=== PATIENT | male | born 1960 | race Caucasian/White ===

== ENCOUNTER 2017-03-25 06:36 | Day surgery (SDC) | payer OTHER ==
[2017-03-23 12:50] VITALS: BMI 38.9
[2017-03-25] MEDS ORDERED: LIDOCAINE HCL 1%, 10 MG/ML (20ML VIAL) ONE (07:10)
[2017-03-25] MEDS ORDERED: LIDOCAINE 1%/EPI 1:100000 (50 ML MULTI DOSE VIAL) ONE (07:11)
[2017-03-25] MEDS ORDERED: BUPIVACAINE HCL/PF 0.5% (5MG/ML) 10 ML VIAL ONE (07:11)
[2017-03-25] MEDS ORDERED: MIDAZOLAM HCL 2 MG/2 ML SINGLE DOSE VIAL ONE (07:42)
[2017-03-25] MEDS ORDERED: PROPOFOL 20 ML ONE ×2 (07:42)
[2017-03-25] MEDS ORDERED: SUCCINYLCHOLINE CHLORIDE 200 MG/10 ML VIAL ONE (07:44)
[2017-03-25] MEDS ORDERED: ceFAZolin SODIUM 1 GM VIAL ONE (08:20)
[2017-03-25] MEDS ORDERED: ceFAZolin SODIUM 1 GM VIAL IVPB ONE (08:24)
[2017-03-25] MEDS ORDERED: BUPIVACAINE HCL/PF (5 MG/ML) 30 ML VIAL IJ ONE (08:31)
[2017-03-25] MEDS ORDERED: LIDOCAINE 1%/EPI 1:100000 (50 ML MULTI DOSE VIAL) INF ONE ×2 (08:31)
[2017-03-25] MEDS ORDERED: oxyCODONE HCL 5 MG TABLET PO PRN (08:57)
[2017-03-25] MEDS ORDERED: ONDANSETRON 4 MG/2 ML VIAL IVPUSH PRN (08:57)
[2017-03-25] MEDS ORDERED: LACTATED RINGERS SOLUTION 1,000 ML IV SCH (09:00)
--- NOTE | 2017-03-25 09:34 | HP ---
Admitting History and Physical - Primary Care Physician PCP: Fritz Cotto (Grader Marker) - Admission Chief Complaint: right 2nd hammertoe with distal chronic diabetic ulceration History of Present Illness: Right 2nd toe hammered causing distal ulceration that has been successfully managed with aperture padding. Toe ulcerates if not padded so patient has requested surgical correction of the distal joint flexure. History Source: Medical Record (deferred to pcp) - Smoking History Smoking history: Never smoked Have you smoked in the past 12 months: No Aproximately how many cigarettes per day: 0 - Alcohol/Substance Use Hx Alcohol Use: No Home Medications - Allergies Allergies/Adverse Reactions: Allergies Allergy/AdvReac Type Severity Reaction Status Date / Time montelukast sodium Allergy Rash Verified 03/25/17 07:16 [From Singulair] - Home Medications Home Medications: Ambulatory Orders Glimepiride [Amaryl] 8 mg PO HS 11/17/11 Losartan Potassium [Cozaar] 25 mg PO HS 11/17/11 Furosemide [Lasix] 40 mg PO PRN PRN 11/18/11 Aspirin Coated [Ecotrin -] 81 mg PO HS 03/25/17 Canagliflozin [Invokana] 300 mg PO HS 03/25/17 Fenofibrate,Micronized [Fenofibrate] 134 mg PO HS 03/25/17 Insulin (Levemir) [Levemir Flexpen -] 30 units SQ DAILY 03/25/17 Insulin Glargine,Hum.rec.anlog [Lantus (nf)] 10 units SQ PRN PRN 03/25/17 Methocarbamol 750 mg PO Q8H 03/25/17 Metoprolol Succinate [Toprol Xl -] 25 mg PO HS 03/25/17 Naproxen [Naprosyn -] 500 mg PO BID 03/25/17 Potassium Chloride [Klor-Con 10] 10 meq PO HS 03/25/17 Rosuvastatin [Crestor -] 10 mg PO HS 03/25/17 Sitagliptin Phosphate [Januvia] 100 mg PO HS 03/25/17 Physical Examination Vital Signs: Vital Signs Temperature 97.7 F 03/25/17 07:15 Pulse Rate 90 03/25/17 07:15 Respiratory Rate 20 03/25/17 07:15 Blood Pressure 110/61 03/25/17 07:15 O2 Sat by Pulse Oximetry (%) 93 L 03/25/17 07:14 Extremities: Yes: Other (right 2nd toe flexed at the distal interphalangeal joint with distal escar but no sign of erythema, edema or infection) Peripheral Pulses: Left Doralis Pedis: 2+, Right Dorsalis Pedis: 2+ Assessment/Plan Assessment Right 2nd hammertoe dipj causing distal weight bearing chronic ulceration. Not currently infected and superficial escar only. Plan Arthroplasty of the right 2nd toe distal interphalangeal joint to correct flexion deformity
--- NOTE | 2017-03-25 09:36 | OP ---
DATE OF OPERATION: 03/25/2017 PROCEDURE: Arthroplasty of the distal interphalangeal joint of the right second toe PREOPERATIVE DIAGNOSIS: 1. Right second hammer toe 2. Right second distal diabetic ulceration POSTOPERATIVE DIAGNOSIS: 1. Right second hammer toe 2. Right second distal diabetic ulceration ANESTHESIA: Fractional DESCRIPTION OF PROCEDURE: Under fractional anesthesia and a surgical scrub with Betadine scrub and solution x 2, the patient was draped using sterile technique. Inspection of the right foot showed flexion deformity at the distal interphalangeal joint with a distal ulceration/eschar on the distal aspect of the right second toe. No cutaneous edema, erythema or signs of infection were present at the toe. Using a No. 15 blade, a double semi-elliptical incision was made over the dorsal interphalangeal joint of the right second toe and carried to bone. Skin, subcutaneous tissue, tendon and joint capsule were resected as a single wedge, exposing the head of the middle phalanx of the right second toe. Using the bone cutting forceps, the distal aspect of the middle phalanx was resected. The wound was irrigated with sterile saline, and then the toe was re-approximated into a normal rectus position, and all tissue levels were sutured with 4-0 simple interrupted sutures. A dry, sterile dressing was applied to the right foot. The patient tolerated the surgical procedure well and left the operating room stable, alert, awake and in no pain. CORIE HERNANDEZ/[id number]
[2017-03-25 10:33] VITALS: TEMP 98
[2017-03-25 10:37] VITALS: BP 120/80; PULSE 0
--- NOTE | 2017-03-26 12:08 | PATH ---
Surgical Pathology Report Patient Name: MARCY MCGEE Med. Rec. #: [id number] /Age/Gender: 1960 (Age: 56) / M Account: [id number] Location: [facility] SURGICAL Taken: 03/25/2017 Received: 03/25/2017 Reported: 03/26/2017 Physicians: Fritz Cotto M.D. Specimen(s) Received BONE FRAGMENTS RIGHT 2ND TOE Clinical History Hammertoe right second toe Final Diagnosis BONE FRAGMENTS, RIGHT SECOND TOE, ARTHROPLASTY: BONE AND CARTILAGE WITH DEGENERATIVE CHANGES. BENIGN SKIN. Electronically Signed Akhil Ziegler M.D. Gross Description Received in formalin labeled "bone pieces right second toe" are 2 duong, irregular portions of bone measuring 0.9 x 0.7 x 0.4 cm and 0.6 x 0.4 x 0.4 cm. The bones are bisected. Also received within the same container is a 1.5 x 0.6 cm duong, elliptical skin shave. The epidermal surface is unremarkable. The skin shave is bisected. The specimen is entirely submitted in one cassette, following decalcification. /03/25/2017 saudi03/25/2017
== END 2017-03-25 10:38 | disposition home or self-care (01) ==
LOC: JASU-SURG 06:36
PROVIDERS: ATTEND Podiatrist Foot Surgery
PROC: 0SRP0JZ Replacement of Right Toe Phalangeal Joint with Synthetic Substitute, Open Approach (ICD-10-PCS; principal; 2017-03-25 08:00)
DX: M20.41 Other hammer toe(s) (acquired), right foot (principal); E11.621 Type 2 diabetes mellitus with foot ulcer; L97.519 Non-pressure chronic ulcer of other part of right foot with unspecified severity; Z79.4 Long term (current) use of insulin; Z79.82 Long term (current) use of aspirin
CPT/HCPCS: 88304-TC; 88311-TC; 94760; J3490

== ENCOUNTER 2017-07-02 10:03 | Day surgery (SDC) | payer OTHER ==
[2017-07-01 11:14] VITALS: BMI 39.5
[2017-07-02] MEDS ORDERED: BUPIVACAINE HCL/PF 0.5% (5MG/ML) 10 ML VIAL ONE (11:48)
[2017-07-02] MEDS ORDERED: MIDAZOLAM HCL 2 MG/2 ML SINGLE DOSE VIAL ONE (11:50)
[2017-07-02] MEDS ORDERED: PROPOFOL 20 ML ONE ×3 (11:53→12:20)
[2017-07-02] MEDS ORDERED: ceFAZolin SODIUM 1 GM VIAL ONE (11:54)
[2017-07-02] MEDS ORDERED: ceFAZolin SODIUM 1 GM VIAL IVPB ONE (11:54)
[2017-07-02] MEDS ORDERED: LIDOCAINE HCL 0.5% EPINEPHRINE 1:200,000 50 ML VIAL IJ ONE (12:07)
[2017-07-02] MEDS ORDERED: BUPIVACAINE HCL/PF 0.5% (5MG/ML) 10 ML VIAL IJ ONE (12:07)
[2017-07-02] MEDS ORDERED: LACTATED RINGERS SOLUTION 1,000 ML IV SCH (13:00)
[2017-07-02] MEDS ORDERED: ONDANSETRON 4 MG/2 ML VIAL IVPUSH PRN (13:00)
[2017-07-02] MEDS ORDERED: oxyCODONE HCL 5 MG TABLET PO PRN (13:00)
--- NOTE | 2017-07-02 13:10 | HP ---
Admitting History and Physical - Primary Care Physician PCP: Fritz Cotto (Ticket Maker) - Admission Chief Complaint: prominent hammertoes 2nd and 5th right foot that have ulcerated in the past. History of Present Illness: Prior ulcerations of the right 2nd and 5th hammertoes have prompted patient to request surgical correction of the deformed toes prior to his next season. History Source: Medical Record (medical history deferred to PCP.) - Smoking History Smoking history: Never smoked Have you smoked in the past 12 months: No Aproximately how many cigarettes per day: 0 - Alcohol/Substance Use Hx Alcohol Use: Yes ([place]) Home Medications - Allergies Allergies/Adverse Reactions: Allergies Allergy/AdvReac Type Severity Reaction Status Date / Time montelukast sodium Allergy Rash Verified 07/02/17 10:25 [From Singfranir] - Home Medications Home Medications: Ambulatory Orders Glimepiride [Amaryl] 8 mg PO HS 11/17/11 Losartan Potassium [Cozaar] 25 mg PO HS 11/17/11 Furosemide [Lasix] 40 mg PO PRN PRN 11/18/11 Aspirin Coated [Ecotrin -] 81 mg PO HS 03/25/17 Canagliflozin [Invokana] 300 mg PO HS 03/25/17 Fenofibrate,Micronized [Fenofibrate] 134 mg PO HS 03/25/17 Insulin (Levemir) [Levemir Flexpen -] 30 units SQ DAILY 03/25/17 Insulin Glargine,Hum.rec.anlog [Lantus (nf)] 10 units SQ PRN PRN 03/25/17 Methocarbamol 750 mg PO Q8H PRN 03/25/17 Metoprolol Succinate [Toprol Xl -] 25 mg PO HS 03/25/17 Naproxen [Naprosyn -] 500 mg PO BID PRN 03/25/17 Potassium Chloride [Klor-Con 10] 10 meq PO HS 03/25/17 Rosuvastatin [Crestor -] 10 mg PO HS 03/25/17 Sitagliptin Phosphate [Januvia] 100 mg PO HS 03/25/17 Physical Examination Vital Signs: Vital Signs Temperature 98.2 F 07/02/17 10:29 Pulse Rate 80 07/02/17 10:29 Respiratory Rate 18 07/02/17 10:29 Blood Pressure 108/66 07/02/17 10:29 O2 Sat by Pulse Oximetry (%) 95 07/02/17 10:29 Extremities: Yes: Other (right 5th toes flexed at interphalangeal joints with no sign of cutaneous ulceration at this time.) Assessment/Plan Assessment Diabetes Hammertoes right 2nd and 5th with bone prominence that cause cutaneous ulcerations Plan Elective arthroplasty of the right 2nd and 5th toes to remove bone prominences and reduce the chances of future ulceration at the sites.
[2017-07-02 13:31] VITALS: TEMP 98.1
[2017-07-02 16:06] VITALS: BP 103/50; PULSE 81
--- NOTE | 2017-07-03 10:24 | OP ---
DATE OF OPERATION: 07/02/2017 SURGEON: Fritz Cotto DPM PREOPERATIVE DIAGNOSIS: Hammertoes of the right second and fifth. POSTOPERATIVE DIAGNOSIS: Hammertoes of the right second and fifth. PROCEDURES: 1. Right second toe distal interphalangeal joint arthroplasty. 2. Right fifth toe proximal interphalangeal joint arthroplasty. DESCRIPTION OF PROCEDURE: Under fractional anesthesia and a surgical scrub with Betadine scrub and solution x2, the patient was draped using sterile technique. Inspection of the right second and fifth digits showed flexion deformities at the distal interphalangeal joint of the second toe and the proximal interphalangeal joint of the fifth toe. No cutaneous ulcerations or signs of infection are present at this time. Using a number 15 surgical blade, a transverse incision was made on the dorsal aspect of the right second toe at the distal interphalangeal joint. The incision was deepened through fascia and joint capsule and retracted, exposing the middle phalanx. Using bone-cutting forceps, the distal aspect of the middle phalanx was resected, and then, the wound was irrigated with sterile saline until it was reapproximated into normal anatomic position. Then, extensor tendon was sutured with 4-0 Vicryl, and then, skin was reapproximated and closed with 4-0 nylon simple interrupted sutures. Attention was then directed to the right fifth toe. Using a number 15 surgical blade, a linear longitudinal incision was made on the dorsal lateral aspect of the right fifth toe. The incision was deepened through fascia and retracted. The extensor tendon and joint capsule were transversely incised and reflected from the proximal interphalangeal joint. Using bone-cutting forceps, the head of the proximal phalanx was resected from the toe. The wound was irrigated with sterile saline, and then, joint capsule and extensor tendon were reapproximated into normal anatomic position and repaired with 4-0 Vicryl suture. Skin was then reapproximated and repaired and closed with 4-0 nylon simple interrupted sutures. A dry sterile dressing was applied to the right foot. The patient tolerated the surgical procedure well and left the operating room stable, alert, awake, and in no pain. CORIE HERNANDEZ/[id number]
--- NOTE | 2017-07-06 14:17 | PATH ---
Surgical Pathology Report Patient Name: MARCY MCGEE [facility]. Rec. #: [id number] /Age/Gender: 1960 (Age: 57) / M Account: [id number] Location: [facility] SURGICAL Taken: 07/02/2017 Received: 07/02/2017 Reported: 07/06/2017 Physicians: Fritz Cotto M.D. Specimen(s) Received BONE FROM 2ND AND 5TH TOES RIGHT FOOT Clinical History Hammertoe right second and fifth toes Final Diagnosis BONE, SECOND AND FIFTH TOE, RIGHT FOOT, ARTHROPLASTY: SOFT TISSUE WITH FOCAL ACUTE INFLAMMATION WITH ABSCESS FORMATION FOCALLY INVOLVING AN UNDERLYING FRAGMENT OF BONE WITH FOCAL EVIDENCE OF DEVELOPMENT OF CHRONIC OSTEOMYELITIS. REMAINING FRAGMENTS OF BONE WITH REMODELING AND DEGENERATIVE CHANGES. Comment: Clinical and imaging correlations are suggested. Electronically Signed Akhil Ziegler M.D. Gross Description Received in formalin labeled "bone from second and fifth toes right foot" are 4 duong, irregular portions of bone ranging from 0.6 x 0.4 x 0.2 cm to 1.5 x 0.8 x 0.7 cm. Visual Aid Expert sections are submitted in one cassette, following decalcification. 07/05/2017 saudi07/05/2017
== END 2017-07-02 15:25 | disposition home or self-care (01) ==
LOC: JASU-SURG 10:03
PROVIDERS: ATTEND Podiatrist Foot Surgery
PROC: 0SRP0JZ Replacement of Right Toe Phalangeal Joint with Synthetic Substitute, Open Approach (ICD-10-PCS; principal; 2017-07-02 11:30)
DX: M20.41 Other hammer toe(s) (acquired), right foot (principal)
CPT/HCPCS: 88304-TC; 88311-TC; 94760

== ENCOUNTER 2018-02-17 14:27 | Day surgery (SDC) | payer OTHER ==
[2018-02-16 09:39] VITALS: BMI 39.5
[2018-02-17] MEDS ORDERED: BUPIVACAINE HCL/PF 0.5% (5MG/ML) 10 ML VIAL ONE (16:17)
[2018-02-17] MEDS ORDERED: MIDAZOLAM HCL 2 MG/2 ML SINGLE DOSE VIAL ONE (16:19)
--- NOTE | 2018-02-17 16:20 | HP ---
Admitting History and Physical - Primary Care Physician PCP: Fritz Cotto (Scheduling Analyst) - Admission Chief Complaint: Chronic ulcerations currently healed but caused by hammering of the digits right 3rd and 4th. - Advance Directives Advance Directives: Yes: Health Care Proxy - Smoking History Smoking history: Never smoked Have you smoked in the past 12 months: No Aproximately how many cigarettes per day: 0 - Alcohol/Substance Use Hx Alcohol Use: Yes (occas) Home Medications - Allergies Allergies/Adverse Reactions: Allergies Allergy/AdvReac Type Severity Reaction Status Date / Time montelukast sodium Allergy Rash Verified 02/16/18 09:45 [From Singulair] - Home Medications Home Medications: Ambulatory Orders Glimepiride [Amaryl] 8 mg PO HS 11/17/11 Losartan Potassium [Cozaar] 25 mg PO HS 11/17/11 Furosemide [Lasix] 40 mg PO PRN PRN 11/18/11 Aspirin Coated [Ecotrin -] 81 mg PO HS 03/25/17 Canagliflozin [Invokana] 300 mg PO HS 03/25/17 Fenofibrate,Micronized [Fenofibrate] 134 mg PO HS 03/25/17 Insulin (Levemir) [Levemir Flexpen -] 30 units SQ DAILY 03/25/17 Insulin Glargine,Hum.rec.anlog [Lantus (nf)] 10 units SQ PRN PRN 03/25/17 Methocarbamol 750 mg PO Q8H PRN 03/25/17 Metoprolol Succinate [Toprol Xl -] 25 mg PO HS 03/25/17 Naproxen [Naprosyn -] 500 mg PO BID PRN 03/25/17 Potassium Chloride [Klor-Con 10] 10 meq PO HS 03/25/17 Rosuvastatin [Crestor -] 10 mg PO HS 03/25/17 Sitagliptin Phosphate [Januvia] 100 mg PO HS 03/25/17 Acetaminophen [Tylenol] 650 mg PO PRN PRN 02/16/18 Aspirin/Acetaminophen/Caffeine [Excedrin Migraine Caplet] 1 each PO PRN Physical Examination Vital Signs: Vital Signs Temperature 97.7 F 02/17/18 14:57 Pulse Rate 80 02/17/18 14:57 Respiratory Rate 20 02/17/18 14:57 Blood Pressure 104/71 02/17/18 14:57 O2 Sat by Pulse Oximetry (%) 94 L 02/17/18 14:57 Musculoskeletal: Yes: Other (right 3rd and 4th toes are mildly hammered but not ulcerated.) Assessment/Plan 1 Assessment Hammering of the right 3rd and 4th toes not currently ulcerated 2. Plan Arthroplasty of the right 3rd and 4th toes to prevent further ulcertion.
[2018-02-17] MEDS ORDERED: ceFAZolin SODIUM 1 GM VIAL IVPB ONE (16:31)
[2018-02-17] MEDS ORDERED: DEXAMETHASONE SOD PHOSPHATE 4 MG/1 ML VIAL ONE (16:31)
[2018-02-17] MEDS ORDERED: ceFAZolin SODIUM 1 GM VIAL ONE (16:31)
[2018-02-17] MEDS ORDERED: LIDOCAINE HCL/PF 2% SDV 5ML VIAL ONE (16:32)
[2018-02-17] MEDS ORDERED: PROPOFOL 20 ML ONE (16:32)
[2018-02-17] MEDS ORDERED: BUPIVACAINE HCL/PF 0.5% (5MG/ML) 10 ML VIAL IJ ONE (16:40)
[2018-02-17] MEDS ORDERED: LIDOCAINE 1%/EPI 1:100000 (20 ML MULTI DOSE VIAL) IJ ONE (16:40)
[2018-02-17] MEDS ORDERED: oxyCODONE HCL 5 MG TABLET PO PRN (17:11)
[2018-02-17] MEDS ORDERED: ONDANSETRON 4 MG/2 ML VIAL IVPUSH PRN (17:11)
[2018-02-17] MEDS ORDERED: LACTATED RINGERS SOLUTION 1,000 ML IV SCH (17:15)
[2018-02-17 18:00] VITALS: TEMP 97.8
[2018-02-17 18:52] VITALS: BP 113/63; PULSE 85
--- NOTE | 2018-02-18 09:55 | OP ---
DATE OF OPERATION: 02/17/2018 SURGEON: Fritz Cotto DPM PREOPERATIVE DIAGNOSIS: Right third and fourth hammertoes. POSTOPERATIVE DIAGNOSIS: Right third and fourth hammertoes. PROCEDURE: Arthroplasty of the right third and fourth hammertoes. DESCRIPTION OF PROCEDURE: Under fractional anesthesia and a surgical scrub with Betadine scrub and solution x2, the patient was draped using sterile technique. Inspection of the right foot showed plantarflexion of the right third toe DIPJ and the right fourth toe of the PIPJ. Using a No. 15 surgical blade, the right third toe underwent double semi-elliptical incision at the DIPJ, and the right fourth toe underwent double semi-elliptical incision at the PIPJ. Dorsal skin wedges were removed using sharp dissection, and joint capsule and extensor tendon wedges were removed in similar fashion. The heads of the bones, the middle phalanx in the right third toe, and the proximal phalanx of the right fourth toe were exposed in the wound, collateral ligaments were cut, and then using a bone saw, these bony heads were removed. Following irrigation, the toes were reapproximated into normal anatomic position, and then extensor capsule and tendon were repaired using 3-0 Vicryl, and then skin was repaired using 3-0 nylon simple interrupted sutures. A dry sterile dressing was applied to the right foot. The patient tolerated the surgical procedure well and left the operating room stable, alert, awake, and in no pain. CORIE HERNANDEZ/[id number]
--- NOTE | 2018-02-21 11:38 | PATH ---
Surgical Pathology Report Patient Name: MARCY MCGEE [facility]. Rec. #: [id number] /Age/Gender: 1960 (Age: 57) / M Account: [id number] Location: [facility] SURGICAL Taken: 02/17/2018 Received: 02/18/2018 Reported: 02/21/2018 Physicians: Fritz Cotto M.D. Specimen(s) Received SKIN & BONE 3RD & 4TH TOE RIGHT FOOT Clinical History Other hammertoes right third and fourth toes Final Diagnosis SKIN AND BONE, RIGHT THIRD AND FOURTH TOE, EXCISION: UNREMARKABLE SKIN, AND BONE WITH REACTIVE CHANGES Electronically Signed Silvino Grossman M.D. Gross Description Received in formalin labeled "skin and bone third and fourth toe right foot," is a 2.5 x 1.8 x 0.8 cm aggregate of multiple portions of skin and bone. Shipping Clerk sections are submitted in one cassette, following decalcification. /02/18/2018 saudi/02/18/2018
== END 2018-02-17 18:51 | disposition home or self-care (01) ==
LOC: JOR 14:27 → JASU-SURG 14:27
PROVIDERS: ATTEND Podiatrist Foot Surgery
PROC: 0SRP0JZ Replacement of Right Toe Phalangeal Joint with Synthetic Substitute, Open Approach (ICD-10-PCS; principal; 2018-02-17 16:00)
DX: M20.41 Other hammer toe(s) (acquired), right foot (principal)
CPT/HCPCS: 82962; 88304-TC; 94760

== ENCOUNTER 2019-09-22 03:16 | Inpatient (IN) | payer OTHER ==
--- NOTE | 2019-09-22 03:34 | PDOC ---
Attending Attestation - Resident Resident Name: [email or web address] - ED Attending Attestation I have performed the following: I have examined & evaluated the patient, The case was reviewed & discussed with the resident, I agree w/resident's findings & plan - HPI HPI: 09/22/19 04:18 Pt comes with fever and chills. States that it woke him from sleep 09/22/19 04:44 Pt took 2 tylenol around 12:30AM; then took 1 motrin at 1:30AM Pt has no nausea, vomiting, diarrhea - Physicial Exam PE: 09/22/19 04:42 Pt comes with fever and sepsis. fever and diaphoresis in the ER Right lung decreased breath sounds and egophany; Pt has a pulsox of 94% on 3L NC Pt has no calf swelling and no rashes. Pt has no flank pain and no abd pain Pt has tachycardia. 09/22/19 04:42 - Medical Decision Making 09/22/19 04:44 CXR confirms right sided pneumonia. He was treated with zosyn and vanco He will be admitted to the hospitalists. 09/22/19 04:52 Flu negative 09/22/19 05:26 UA pending 09/22/19 06:57 UA is still pending. Pt signed out to the [employer] med docs. Heart Score/ECG Review - ECG Intrepretation Rhythm: Regular Rhythm - [place]: Normal - QRS Poor R Wave Progression: No Q Wave Present: No - ST and T Flattened T Waves: No - ECG Impressions Normal ECG: No Non-specific ST Elevation: No Ischemic Changes: No Bradycardia: No Tachycardia: Sinus Torsades ashlie Pointes: No WPW: No
[2019-09-22] MEDS ORDERED: ACETAMINOPHEN 1000 MG/100 ML VIAL (NON FORMULARY) IVPB ONE (03:47)
[2019-09-22] MEDS ORDERED: PIPERACILLIN/TAZOB 4.5 GM 4.5 GM in DEXTROSE 5%-WATER 100 ML IVPB ONE (03:47)
[2019-09-22] MEDS ORDERED: VANCOMYCIN 1,000 MG in DEXTROSE 5%-WATER - 250 ML IVPB ONE (03:48)
[2019-09-22] MEDS ORDERED: PIPERACILLIN/TAZOB 4.5 GM 4.5 GM/100 ML BAG IVPB ONE (04:05)
[2019-09-22] MEDS ORDERED: ACETAMINOPHEN INJECTION 100 ML IVPB ONE (04:05)
[2019-09-22] MEDS ORDERED: VANCOMYCIN 1 GRAM (PRE-DOCKED) 1,000 MG/250 ML BAG IVPB ONE (04:06)
[2019-09-22 04:09] LABS: BASO % 0.7 % (0-2.0); EOS % 0.5 % (0-4.5); HEMATOCRIT 50.6 % (35.4-49); HEMOGLOBIN 16.7 GM/dL (11.7-16.9); LYMPH % 7.7 % (8-40); MEAN PLT VOLUME 8.4 fl (7.5-11.1); MONO % 2.8 % (3.8-10.2); NEUT % 88.3 % (42.8-82.8); PLATELET COUNT 207 K/MM3 (134-434); RBC 5.74 M/mm3 (4.00-5.60); RDW 15.3 % (11.9-15.9); WHITE BLOOD COUNT 16.4 K/mm3 (4.0-10.0)
[2019-09-22 04:12] LABS: VENOUS PC02 43.9 mmHg (38-52); VENOUS PH 7.43 (7.31-7.41)
[2019-09-22 04:17] LABS: VENOUS PO2 < 49 mmHg (28-48)
[2019-09-22 04:18] LABS: INR 0.99 (0.83-1.09); PROTHROMBIN TIME (PATIENT) 11.7 SEC (9.7-13.0)
[2019-09-22 04:21] LABS: ACTIVATED PTT 31.9 SECONDS (25.2-36.5)
[2019-09-22 04:31] LABS: BILIRUBIN,TOTAL 0.6 mg/dL (0.2-1); BLOOD UREA NITROGEN 21.1 mg/dL (7-18); CALCIUM 9.3 mg/dL (8.5-10.1); CREATININE 1.4 mg/dL (0.55-1.3); POTASSIUM 3.9 mmol/L (3.5-5.1)
[2019-09-22] MEDS ORDERED: IBUPROFEN 600 MG TABLET (FP) PO ONE ×2 (04:42→04:50)
--- NOTE | 2019-09-22 04:54 | PDOC ---
History of Present Illness - General Chief Complaint: SIRS, Suspected/Possible Stated Complaint: FEVER/WEAKNESS Time Seen by Provider: 09/22/19 03:26 History Source: Patient Exam Limitations: No Limitations - History of Present Illness Initial Comments: 09/22/19 04:49 59M with a PMH of HTN, DM, HLD who presents to the ER for sudden onset fever and chills. The patient states that he was in his normal state of health until around 2300 last night. He then states that he developed chills and shaking. He did not want to wake up his until this morning around 0130 where she noticed a temperature over 100F and gave him 2 acetaminophen. 1 hour later, she noted a temp of 102 and gave him ibuprofen. 1 hour after this, she rechecked his temp and it was 103 and she decided to bring him to the ER. He denies CP, SOB, nausea, vomiting, cough, dysuria, abdominal pain. Past History - Past Medical History Allergies/Adverse Reactions: Allergies Allergy/AdvReac Type Severity Reaction Status Date / Time montelukast sodium Allergy Rash [facility]16[facility]18 09:45 [facility] Home Medications: Ambulatory Orders Glimepiride [Amaryl] 8 mg PO HS 11/17/11 Losartan Potassium [Cozaar] 25 mg PO HS 11/17/11 Furosemide [Lasix -] 40 mg PO PRN PRN 11/18/11 Fenofibrate,Micronized [Fenofibrate] 145 mg PO HS 03/25/17 Insulin (Levemir) [Levemir Flexpen -] 40 units SQ DAILY 03/25/17 Insulin Glargine,Hum.rec.anlog [Lantus (10mL VIAL) -] 20 units SQ PRN PRN Metoprolol Succinate [Toprol XL -] 25 mg PO HS 03/25/17 Potassium Chloride [Klor-Con 10] 10 meq PO BID 03/25/17 Rosuvastatin [Crestor -] 10 mg PO HS 03/25/17 Aspirin/Acetaminophen/Caffeine [Excedrin Migraine Caplet] 1 each PO PRN Hydrocodone/Acetaminophen [Hydrocodone-Acetamin 5-325 mg] 1 each PO PRN PRN Anemia: No Asthma: No Cancer: No Cardiac Disorders: No CVA: No COPD: No CHF: No Dementia: No Diabetes: Yes GI Disorders: No Disorders: No HTN: Yes Hypercholesterolemia: Yes Liver Disease: No Seizures: No Thyroid Disease: No - Surgical History Abdominal Surgery: Yes (UMBILICAL HERNIA) Appendectomy: No Cardiac Surgery: No Cholecystectomy: No Lung Surgery: No Neurologic Surgery: No Orthopedic Surgery: Yes (SUHAS knee replacement,LEFT hip replacement) - Immunization History Td Vaccination: Yes Immunization Up to Date: Yes - Psycho Social/Smoking Cessation Hx Smoking Status: No Smoking History: Never smoked Have you smoked in the past 12 months: No Number of Cigarettes Smoked Daily: 0 Hx Alcohol Use: No Drug/Substance Use Hx: No Substance Use Type: Alcohol Hx Substance Use Treatment: No Review of Systems - Review of Systems Able to Perform ROS?: Yes Comments:: 09/22/19 04:51 GENERAL/CONSTITUTIONAL: + for fever or chills. No weakness. HEAD, EYES, EARS, NOSE AND THROAT: No change in vision. No ear pain or discharge. No sore throat. CARDIOVASCULAR: No chest pain, palpitations, or lightheadedness. RESPIRATORY: No cough, wheezing, shortness of breath, or hemoptysis. GASTROINTESTINAL: No abdominal pain, nausea, vomiting, diarrhea, or constipation. GENITOURINARY: No dysuria, frequency, hematuria, or change in urination. MUSCULOSKELETAL: No joint or muscle swelling or pain. No neck or back pain. SKIN: No rash or lesions. NEUROLOGIC: No headache, numbness, tingling, focal weakness, loss of consciousness, or change in strength/sensation. Is the patient limited [place]ian proficient: No *Physical Exam - Vital Signs Last Vital Signs Temp Pulse Resp BP Pulse Ox 102.9 F H 134 H 18 125/42 L 95 09/22/19 03:30 09/22/19 03:30 09/22/19 03:30 09/22/19 03:30 09/22/19 03:30 - Physical Exam Comments: 09/22/19 04:53 GENERAL: Well developed, well nourished. Awake and alert. Mild distress. HEENT: Normocephalic, atraumatic. Hearing grossly normal. Moist mucous membranes. PERRLA, EOMI. No conjunctival pallor. Sclera are non-icteric. Oropharynx is clear. Redness from shoulder and superiorly without warmth to touch or streaking. NECK: Supple. Full ROM. No JVD. CARDIOVASCULAR: Tachycardic with regular rhythm. No murmurs, rubs, or gallops. PULMONARY: No evidence of respiratory distress. Lungs clear to auscultation bilaterally. No wheezing, rales or rhonchi. ABDOMINAL: Soft. Non-tender. Protuberant Non-distended. No rebound or guarding. GENITOURINARY: No CVA tenderness bilaterally. MUSCULOSKELETAL: Normal range of motion at all joints. No bony deformities or tenderness. EXTREMITIES: No cyanosis. No clubbing. No edema. No calf tenderness or swelling. SKIN: Warm and dry. Normal capillary refill. No rashes. No jaundice. NEUROLOGICAL: Alert, awake, appropriate. Cranial nerves 2-12 grossly intact. Normal speech. Gait is normal without ataxia. PSYCHIATRIC: Cooperative. Good eye contact. Appropriate mood and affect. ED Treatment Course - LABORATORY CBC & Chemistry Diagram: 09/22/19 03:45 09/22/19 03:45 - ADDITIONAL ORDERS Additional order review: Laboratory Results 09/22/19 09/22/19 09/22/19 03:45 03:45 03:45 PT with INR INR PTT (Actin FS) VBG pH 7.43 H POC VBG pCO2 43.9 POC VBG pO2 < 49 H VBG HCO3 28.7 VBG O2 Sat (Jason) 72.8 VBG Base Excess 4.2 H Sodium 136 Potassium 3.9 Chloride 101 Carbon Dioxide 28 Anion Gap 7 L BUN 21.1 H Creatinine 1.4 H Est GFR (CKD-EPI)AfAm 63.29 Est GFR (CKD-EPI)NonAf 54.60 Random Glucose 167 H Lactic Acid 2.8 H* Calcium 9.3 Total Bilirubin 0.6 AST 28 ALT 37 Alkaline Phosphatase 52 Troponin I Total Protein 7.0 Albumin 4.0 09/22/19 09/22/19 03:45 03:45 PT with INR 11.70 INR 0.99 PTT (Actin FS) 31.9 VBG pH POC VBG pCO2 POC VBG pO2 VBG HCO3 VBG O2 Sat (Jason) VBG Base Excess Sodium Potassium Chloride Carbon Dioxide Anion Gap BUN Creatinine Est GFR (CKD-EPI)AfAm Est GFR (CKD-EPI)NonAf Random Glucose Lactic Acid Calcium Total Bilirubin AST ALT Alkaline Phosphatase Troponin I < 0.02 Total Protein Albumin 09/22/19 03:45 RBC 5.74 H MCV 88.0 MCHC 33.0 RDW 15.3 D MPV 8.4 Neutrophils % 88.3 H Lymphocytes % 7.7 L D Monocytes % 2.8 L Eosinophils % 0.5 Basophils % 0.7 - RADIOLOGY Radiology Studies Ordered: Category Date Time Status CHEST X-RAY PORTABLE* [RAD] Stat Radiology 09/22/19 03:29 Taken - Medications Given in the ED: ED Medications Discontinued Medications Generic Name Dose Route Start Last Admin Trade Name Bree PRN Reason Stop Dose Admin Acetaminophen 1,000 mg 09/22/19 03:47 09/22/19 04:18 Ofirmev Injection - IVPB 09/22/19 03:48 1,000 mg ONCE ONE Administration Piperacillin Sod/Tazobactam 100 mls @ 200 mls/hr 09/22/19 03:47 09/22/19 04: 18 Sod 4.5 gm/ Dextrose IVPB 09/22/19 04:16 200 mls/hr ONCE ONE Administration Protocol Medical Decision Making - Medical Decision Making 09/22/19 04:54 59M with a PMH of DM, HTN, HLD who presents with fever of unknown origin. PE remarkable for rhonchi in b/l lung [place]. Incoming vitals notable for tachycardia and hypoxia, concerning for PNA. Questionable RLL infiltrate on preliminary CXR read. Pending urine. Giving broad spectrum abx. Pt is maintaining BP. Microblogged for admission. CBC shows leukocytosis w/ left shift and mildly elevated lactic acidosis. Influenza negative. CMP shows LORENA w/ Cr of 1.4. Last Cr 0.9 from 2011. 09/22/19 05:[address] Goss for admission. Discharge - Discharge Information Problems reviewed: Yes Clinical Impression/Diagnosis: Sepsis Qualifiers: Sepsis type: sepsis due to unspecified organism Sepsis acute organ dysfunction status: unspecified Qualified Code(s): A41.9 - Sepsis, unspecified organism Condition: Good Disposition: HOME - Admission Yes - Follow up/Referral Referrals: Lelia Mack MD [Primary Care Provider] - - Patient Discharge Instructions - Post Discharge Activity
[2019-09-22] MEDS: SODIUM CHLORIDE 1,000 ML IV SCH ×2 (06:37→11:26)
--- NOTE | 2019-09-22 06:44 | PN ---
Teaching Attending Note Name of Resident: Richie Pearl ATTENDING PHYSICIAN STATEMENT I saw and evaluated the patient. I reviewed the resident's note and discussed the case with the resident. I agree with the resident's findings and plan as documented. SUBJECTIVE: 89-year-old man with a history of diabetes, hypertension, dyslipidemia complained of sudden onset of fever and chills which started 1 day ago. Patient denied any shortness of breath, cough, diarrhea, dysuria, sick contacts or recent travel. OBJECTIVE: Last Vital Signs Temp Pulse Resp BP Pulse Ox 102.9 F H 134 H 18 125/42 L 95 09/22/19 03:30 09/22/19 03:30 09/22/19 03:30 09/22/19 03:30 09/22/19 03:30 GENERAL: Well developed, well nourished. Awake and alert. No acute distress.Appears nontoxic. Very diaphoretic. HEENT: Normocephalic, atraumatic. PERRLA, EOMI. No conjunctival pallor. Sclera are non- icteric. Moist mucous membranes. Oropharynx is clear. NECK: Supple. Full ROM. No JVD. Carotid pulses 2+ and symmetric, without bruits. No thyromegaly. No lymphadenopathy. CARDIOVASCULAR: Regular rate and rhythm. No murmurs, rubs, or gallops. Distal pulses are 2+ and symmetric. PULMONARY: No evidence of respiratory distress. Lungs clear to auscultation bilaterally. No wheezing, rales or rhonchi. ABDOMINAL: Soft. Non-tender. Non-distended. No rebound or guarding. No organomegaly. Normoactive bowel sounds. MUSCULOSKELETAL Normal range of motion at all joints. No bony deformities or tenderness. No CVA tenderness. EXTREMITIES: No cyanosis. No clubbing. No edema. No calf tenderness. SKIN: Warm and dry. Normal capillary refill. No rashes. No jaundice. No skin lesions appreciated. PSYCHIATRIC: Cooperative. Good eye contact. Appropriate mood and affect. Abnormal Lab Results 09/22/19 09/22/19 09/22/19 03:45 03:45 03:45 WBC 16.4 H RBC 5.74 H Hct 50.6 H D Absolute Neuts (auto) 14.5 H Neutrophils % 88.3 H Lymphocytes % 7.7 L D Monocytes % 2.8 L VBG pH POC VBG pO2 VBG Base Excess Anion Gap 7 L BUN 21.1 H Creatinine 1.4 H Random Glucose 167 H Lactic Acid 2.8 H* 09/22/19 03:45 WBC RBC Hct Absolute Neuts (auto) Neutrophils % Lymphocytes % Monocytes % VBG pH 7.43 H POC VBG pO2 < 49 H VBG Base Excess 4.2 H Anion Gap BUN Creatinine Random Glucose Lactic Acid Imaging reviewed ASSESSMENT AND PLAN: 59-year-old male with what appears to be severe sepsis with lactic acidosis, leukocytosis, LORENA. No source of infection was identified, suspect viral illness , possibly URI. Although flu swab was negative does not exclude the possibility of patient having influenza. Blood cultures Urine culture ESR and CRP Empiric Tamiflu 75 mg twice daily for 5 days Continue empiric vancomycin and Zosyn for now and would de-escalate if blood cultures returned negative ID consult for temporary vancomycin Zosyn approval Tight glucose control Heparin subcutaneously for DVT prophylaxis
--- NOTE | 2019-09-22 06:46 | HP ---
CHIEF COMPLAINT: Fever and chills HISTORY OF PRESENT ILLNESS: 59 y/o male PMH HTN, HLD, and DM c/o sudden sweating and chills that occurred on the evening of 21 Sep 2019. He took acetominophen and ibuprofen with no fever relief, and temporal read temp max at home 102. He denies any other symptoms: no pain, cough, rhinorrhea, SOB, CP, abdominal pain, diarrhea, constipation, nausea and vomiting. A similar instance occurred in the past and it resolved on its own. He states that he is at baseline very diaphoretic but is concerned about the fever. He denies recent illness, sick contacts, recent travel and new food. He has not been exposed to unusual environments like caves , had tick bites, traveled to [facility], or use injection drugs. He denies NVFD. ER course was notable for: (1) Flu swab neg (2) CXR taken (3) Ofrimev and zosyn administered Recent Travel: Denies PAST MEDICAL HISTORY: HTN, HLD, DM PAST SURGICAL HISTORY: Umbilical hernia repair, BL knee replacement, LEFT hip total replacement, gastric band and removal, multiple hammer toe and revisions Social History: Smoking: denies Alcohol: social Drugs: denies Family history: Mother - asthma COPD; father - CAD, dm; aunt lung cancer and other relatives stomach cancer Allergies: montelukast sodium [From Singulair] Allergy (Verified 02/16/18 09:45 ) Rash HOME MEDICATIONS: Medication Instructions Recorded Glimepiride [Amaryl] 8 mg PO HS 11/17/11 Losartan Potassium [Cozaar] 25 mg PO HS 11/17/11 Furosemide [Lasix -] 40 mg PO PRN PRN 11/18/11 Fenofibrate,Micronized 145 mg PO HS 03/25/17 [Fenofibrate] Insulin (Levemir) [Levemir Flexpen 40 units SQ DAILY 03/25/17 -] Insulin Glargine,Hum.rec.anlog 20 units SQ PRN PRN 03/25/17 [Lantus (10mL VIAL) -] Metoprolol Succinate [Toprol XL -] 25 mg PO HS 03/25/17 Potassium Chloride [Klor-Con 10] 10 meq PO BID 03/25/17 Rosuvastatin [Crestor -] 10 mg PO HS 03/25/17 Aspirin/Acetaminophen/Caffeine 1 each PO PRN 02/17/18 [Excedrin Migraine Caplet] Hydrocodone/Acetaminophen 1 each PO PRN PRN 09/22/19 [Hydrocodone-Acetamin 5-325 mg] REVIEW OF SYSTEMS CONSTITUTIONAL: Absent: fever, chills, diaphoresis, generalized weakness, malaise, loss of appetite, weight change HEENT: Absent: rhinorrhea, nasal congestion, throat pain, throat swelling, difficulty swallowing, mouth swelling, ear pain, eye pain, visual changes CARDIOVASCULAR: Absent: chest pain, syncope, palpitations, irregular heart rate, lightheadedness , peripheral edema RESPIRATORY: Absent: cough, shortness of breath, dyspnea with exertion, orthopnea, wheezing, stridor, hemoptysis GASTROINTESTINAL: Absent: abdominal pain, abdominal distension, nausea, vomiting, diarrhea, constipation, melena, hematochezia GENITOURINARY: Absent: dysuria, frequency, urgency, hesitancy, hematuria, flank pain, genital pain MUSCULOSKELETAL: Absent: myalgia, arthralgia, joint swelling, back pain, neck pain SKIN: Absent: rash, itching, pallor HEMATOLOGIC/IMMUNOLOGIC: Absent: easy bleeding, easy bruising, lymphadenopathy, frequent infections ENDOCRINE: Absent: unexplained weight gain, unexplained weight loss, heat intolerance, cold intolerance NEUROLOGIC: Absent: headache, focal weakness or paresthesias, dizziness, unsteady gait, seizure, mental status changes, bladder or bowel incontinence PSYCHIATRIC: Absent: anxiety, depression, suicidal or homicidal ideation, hallucinations. PHYSICAL EXAMINATION Vital Signs - 24 hr 09/22/19 03:30 Temperature 102.9 F H Pulse Rate 134 H Respiratory 18 Rate Blood Pressure 125/42 L O2 Sat by Pulse 95 Oximetry (%) GENERAL: AOx3, in mild distress, diaphoretic, obese HEAD: NCAT EYES: HAVEN, EOMI, conjunctival injection. ENT: Ears normal, nares patent, oropharynx clear without exudates. Moist mucous membranes. NECK: Normal range of motion, supple without lymphadenopathy, JVD, or masses. LUNGS: CTAB. No wheezes, and no crackles. No accessory muscle use. HEART: RRR s1 s2 ABDOMEN: Soft, obese, BS present in all 4 quadrants, non-distended, no JVD, MUSCULOSKELETAL: No bony deformities or tenderness. No CVA tenderness. UPPER EXTREMITIES: 2+ pulses, warm, well-perfused. No cyanosis. No clubbing. No peripheral edema. LOWER EXTREMITIES: 2+ pulses, warm, well-perfused. No calf tenderness. No peripheral edema. NEUROLOGICAL: No focal deficits. Cranial nerves II-XII intact. Normal speech. Gait not appreciated. PSYCHIATRIC: Cooperative. Good eye contact. Appropriate mood and affect. SKIN: Scattered 1x1cm erythematous lesions/petichiea on RLE. Warm, dry, normal turgor, no rashes or lesions noted, normal capillary refill. Laboratory Results - last 24 hr 09/22/19 09/22/19 09/22/19 03:45 03:45 03:45 WBC 16.4 H RBC 5.74 H Hgb 16.7 Hct 50.6 H D MCV 88.0 MCH 29.0 MCHC 33.0 RDW 15.3 D Plt Count 207 D MPV 8.4 Absolute Neuts (auto) 14.5 H Neutrophils % 88.3 H Lymphocytes % 7.7 L D Monocytes % 2.8 L Eosinophils % 0.5 Basophils % 0.7 Nucleated RBC % 0 PT with INR 11.70 INR 0.99 PTT (Actin FS) 31.9 VBG pH POC VBG pCO2 POC VBG pO2 VBG HCO3 VBG O2 Sat (Jason) VBG Base Excess Sodium Potassium Chloride Carbon Dioxide Anion Gap BUN Creatinine Est GFR (CKD-EPI)AfAm Est GFR (CKD-EPI)NonAf Random Glucose Lactic Acid Calcium Total Bilirubin AST ALT Alkaline Phosphatase Troponin I < 0.02 Total Protein Albumin Influenza A (Rapid) Influenza B (Rapid) 09/22/19 09/22/19 09/22/19 03:45 03:45 03:45 WBC RBC Hgb Hct MCV MCH MCHC RDW Plt Count MPV Absolute Neuts (auto) Neutrophils % Lymphocytes % Monocytes % Eosinophils % Basophils % Nucleated RBC % PT with INR INR PTT (Actin FS) VBG pH 7.43 H POC VBG pCO2 43.9 POC VBG pO2 < 49 H VBG HCO3 28.7 VBG O2 Sat (Jason) 72.8 VBG Base Excess 4.2 H Sodium 136 Potassium 3.9 Chloride 101 Carbon Dioxide 28 Anion Gap 7 L BUN 21.1 H Creatinine 1.4 H Est GFR (CKD-EPI)AfAm 63.29 Est GFR (CKD-EPI)NonAf 54.60 Random Glucose 167 H Lactic Acid 2.8 H* Calcium 9.3 Total Bilirubin 0.6 AST 28 ALT 37 Alkaline Phosphatase 52 Troponin I Total Protein 7.0 Albumin 4.0 Influenza A (Rapid) Influenza B (Rapid) 09/22/19 04:05 WBC RBC Hgb Hct MCV MCH MCHC RDW Plt Count MPV Absolute Neuts (auto) Neutrophils % Lymphocytes % Monocytes % Eosinophils % Basophils % Nucleated RBC % PT with INR INR PTT (Actin FS) VBG pH POC VBG pCO2 POC VBG pO2 VBG HCO3 VBG O2 Sat (Jason) VBG Base Excess Sodium Potassium Chloride Carbon Dioxide Anion Gap BUN Creatinine Est GFR (CKD-EPI)AfAm Est GFR (CKD-EPI)NonAf Random Glucose Lactic Acid Calcium Total Bilirubin AST ALT Alkaline Phosphatase Troponin I Total Protein Albumin Influenza A (Rapid) Negative Influenza B (Rapid) Negative ASSESSMENT/PLAN: 59 y/o male PMH HTN, HLD, and DM c/o sudden sweating and chills # Severe sepsis of unknown origin - Panculture - Blood culture - Urine culture - ESR and CRP - Empiric Tamiflu 75 mg twice daily for 5 days - Continue empiric vancomycin and Zosyn for now and would de-escalate if blood cultures returned negative - Consult ID - Tight glucose control # LORENA - IV fluids # DM - Hold oral agents - ISS ACHS # HTN - Cont. curent home regimen # HLD - Cont. curent home regimen #F/E/N - NS - Cont. to monitor - Diabetic diet with low sodium modification # DVT prophylaxis - Heparin SQ # Disposition - Admit to med/surg Richie Pearl MD Visit type - Emergency Visit Emergency Visit: Yes ED Registration Date: 09/22/19 Care time: The patient presented to the Emergency Department on the above date and was hospitalized for further evaluation of their emergent condition. - New Patient This patient is new to me today: Yes Date on this admission: 09/22/19 - Critical Care Critical Care patient: No ATTENDING PHYSICIAN STATEMENT I saw and evaluated the patient. I reviewed the resident's note and discussed the case with the resident. I agree with the resident's findings and plan as documented. SUBJECTIVE: OBJECTIVE: ASSESSMENT AND PLAN:
[2019-09-22 07:36] LABS: URINE APPEARANCE CLEAR; URINE BILIRUBIN NEGATIVE (NEGATIVE); URINE COLOR YELLOW; URINE GLUCOSE (UA) >=1000 (NEGATIVE); URINE KETONE NEGATIVE (NEGATIVE)
[2019-09-22 07:37] LABS: EPI CELLS 1.2 /HPF (0-5/HPF); URINE LEUK ESTERASE NEGATIVE (NEGATIVE); URINE NITRITE NEGATIVE (NEGATIVE); URINE PROTEIN TRACE (NEGATIVE); URINE RBC 0.5 /hpf (0-4); URINE UROBILINOGEN 0.2 mg/dL (0.2-1.0); URINE WBC 29.1 /hpf (0-5)
[2019-09-22 07:38] LABS: HYALINE CASTS 4.09 /lpf (0-8); URINE BACTERIA 79.7 /hpf (NEGATIVE)
[2019-09-22] MEDS: HEPARIN NA (PORCINE) 5,000 UNITS/ML 1ML VIAL SQ SCH ×3 (08:33→21:51)
[2019-09-22] MEDS: INSULIN SLIDING SCALE (NOVOLOG) 1 VIAL SQ SCH ×4 (08:47→21:51)
[2019-09-22] MEDS ORDERED: PIPERACILLIN/TAZOB 3.375 GM 3.375 GM in DEXTROSE 5%-WATER - 50 ML IVPB SCH (10:00)
[2019-09-22] MEDS ORDERED: OSELTAMIVIR PHOSPHATE 75 MG CAPSULE PO SCH (10:00)
[2019-09-22] MEDS ORDERED: PIPERACILLIN/TAZOBACTAM 3.375 GM VIAL IVPB ONE (11:09)
[2019-09-22] MEDS ORDERED: DEXTROSE 5%-WATER - 50 ML IVPB ONE (11:10)
[2019-09-22 11:18] LABS: BASO % 0.3 % (0-2.0); EOS % 0.2 % (0-4.5); HEMATOCRIT 49.9 % (35.4-49); HEMOGLOBIN 15.9 GM/dL (11.7-16.9); LYMPH % 5.8 % (8-40); MCH 28.4 pg (25.7-33.7); MCHC 31.8 g/dl (32.0-35.9); MEAN CELL VOLUME 89.3 fl (80-96); MEAN PLT VOLUME 8.3 fl (7.5-11.1); MONO % 3.7 % (3.8-10.2); PLATELET COUNT 205 K/MM3 (134-434); RBC 5.58 M/mm3 (4.00-5.60); RDW 16.3 % (11.9-15.9); WHITE BLOOD COUNT 19.8 K/mm3 (4.0-10.0)
[2019-09-22] MEDS ORDERED: INSULIN (NOVOLOG) ASPART 100 UNITS/ML 10ML VIAL ONE (11:41)
[2019-09-22 11:46] LABS: BLOOD UREA NITROGEN 22.9 mg/dL (7-18); CALCIUM 9.2 mg/dL (8.5-10.1); CREATININE 1.3 mg/dL (0.55-1.3); MAGNESIUM 2.2 mg/dL (1.8-2.4); POTASSIUM 4.1 mmol/L (3.5-5.1)
--- NOTE | 2019-09-22 12:31 | PN ---
Progress Note (short form) - Note Progress Note: ID CONSULT DICTATED ABRUPT ONSET FEVER/ CHILLS WITHOUT APPARENT SOURCE ? CELLULITIS L LE LEUKOCYTOSIS AWAIT C/S EMPIRIC VANCOMYCIN/ CEFTRIAXONE
[2019-09-22 12:36] VITALS: BMI 41.0
--- NOTE | 2019-09-22 13:01 | CONS ---
INFECTIOUS DISEASE CONSULTATION DATE OF CONSULTATION: DATE OF DICTATION: 09/22/2019 HISTORY: The patient is a 59-year-old diabetic male who was evaluated for fever and chills. He was admitted to the hospital on September 21, 2019. He had abrupt onset of fever, shaking chills, and diaphoresis while at home. Symptoms recurred, and he presented to the emergency room. In the emergency room, he was noted to have a fever of 102.9 and a white blood cell count of 19.8. Chest x-ray showed possible increased making left lower lobe. He was empirically treated with vancomycin and Zosyn. At the present time, he reports he feels significantly better. He denies any recurrent high-grade fever or shaking chills. He complains of chest pain, shortness of breath, cough, or sputum production. He denies any vomiting or diarrhea. No dysuria or hematuria. Patient lives at home with his who is well. He denies any ill contacts. No recent travel. No intact animal bites or scratches. PAST MEDICAL HISTORY: Positive for hypertension, hyperlipidemia, diabetes mellitus. PAST SURGICAL HISTORY: Status post umbilical hernia repair, bilateral total knee replacements, left hip replacement, gastric band. ALLERGIES: MONTELUKAST. MEDICATIONS: Include Zosyn, vancomycin, Tylenol, heparin, ibuprofen. SOCIAL HISTORY: He resides at home. He is a nonsmoker, nondrinker. SYSTEMS REVIEW: Neurologic: No loss of consciousness, seizure activity, focal weakness. Cardiac: Negative chest pain or palpitations. Respiratory: Negative cough or sputum production. Gastrointestinal: Negative vomiting or diarrhea. Genitourinary: Negative for urinary tract infection. LABORATORY DATA: White count 19.8, hematocrit 49.9, platelets 205, creatinine 1.3. Cultures are pending. Influenza swab negative. Urinalysis 29 white cells, lactic acid 2.4. PHYSICAL EXAMINATION: General: The patient is awake and alert in bed in no acute distress. Not acutely toxic appearing. Vital Signs: Temperature 98.1, maximum temperature 102.9, blood pressure 101/72, pulse 130 regular, respirations 18 per minute. HEENT: Sclerae anicteric. Heart: Sounds S1, S2. Lungs: Clear. Abdomen: Obese, soft, nontender. Extremities: 1+ edema. Examination of the left lower extremity, there is faint erythema present on the distal aspect of the left lower extremity in the area of the distal left pretibial region extending to the foot. He has some tenderness left medial thigh. There are no open wounds or drainage noted. IMPRESSION: 1. Fever, chills without apparent source. 2. Possible early cellulitis, left lower extremity. 3. Leukocytosis. 4. Diabetes mellitus. 5. Lactic acidosis. PLAN: Await cultures. Empiric antibiotic coverage for possible early left lower extremity cellulitis and sepsis secondary skin source with vancomycin and ceftriaxone. We will follow. Thank you for the kind referral. SHAN RIOJAS M.D. CELESTE/[id number]
[2019-09-22] MEDS ORDERED: DEXTROSE 5%-WATER 100 ML IVPB ONE (14:21)
[2019-09-22] MEDS: CEFTRIAXONE 2 GM in DEXTROSE 5%-WATER 100 ML IVPB SCH (14:43)
[2019-09-22 15:11] LABS: N-TERMINAL BNP 130.4 pg/ml (5-125)
--- NOTE | 2019-09-22 16:26 | PN ---
Progress Note (short form) - Note Progress Note: Hospitalist Medicine States that he is feeling better. Believes that he overexerted himself during the holiday, causing his sx. (fever, chills) Vitals 09/22/19 15:09 Temperature 98.4 F Pulse Rate 105 H Respiratory 18 Rate Blood Pressure 135/93 Physical Exam general: resting in bed, sweaty. in NAD HEENT: NCAT, PERRLA neck: supple cardio: +tachy rate. s1, s2, no r/m/g pulm: CTA b/l. no accessory m usage abdomen: soft, nontender, nondistended. obese LE: 1+ pitting edema b/l. warmth, erythema LLE Laboratory Tests 09/22/19 09/22/19 09/22/19 04:05 04:05 10:54 WBC 19.8 H Hgb 15.9 Hct 49.9 H Plt Count 205 Sodium Potassium Chloride Carbon Dioxide BUN Creatinine Random Glucose Hemoglobin A1c % Lactic Acid C-Reactive Protein B-Natriuretic Peptide [place] Type B(1) Ab [place] Type B(2) Ab [place] Type B(3) Ab [place] Type B(4) Ab [place] Type B(5) Ab [place] Type B(6) Ab Hep C Ab Diagnostic Human Metapneumovir PCR Pending Influenza A (Rapid) Negative Influenza A (H1) PCR Pending Influenza B (Rapid) Negative Influenza B (RT-PCR) Pending Parainfluenza 1 (PCR) Pending Parainfluenza 2 (PCR) Pending Parainfluenza 3 (PCR) Pending RSV Type A (PCR) Pending RSV Type B (PCR) Pending Rhinovirus (PCR) Pending 09/22/19 09/22/19 09/22/19 10:54 10:54 10:54 WBC Hgb Hct Plt Count Sodium 139 Potassium 4.1 Chloride 103 Carbon Dioxide 30 BUN 22.9 H Creatinine 1.3 Random Glucose 262 H Hemoglobin A1c % 7.9 H Lactic Acid 1.5 C-Reactive Protein B-Natriuretic Peptide [place] Type B(1) Ab [place] Type B(2) Ab [place] Type B(3) Ab [place] Type B(4) Ab [place] Type B(5) Ab [place] Type B(6) Ab Hep C Ab Diagnostic Human Metapneumovir PCR Influenza A (Rapid) Influenza A (H1) PCR Influenza B (Rapid) Influenza B (RT-PCR) Parainfluenza 1 (PCR) Parainfluenza 2 (PCR) Parainfluenza 3 (PCR) RSV Type A (PCR) RSV Type B (PCR) Rhinovirus (PCR) 09/22/19 09/22/19 09/22/19 11:50 14:06 14:06 WBC Hgb Hct Plt Count Sodium Potassium Chloride Carbon Dioxide BUN Creatinine Random Glucose Hemoglobin A1c % Lactic Acid 1.6 C-Reactive Protein 14.7 H B-Natriuretic Peptide 130.4 H [place] Type B(1) Ab Pending [place] Type B(2) Ab Pending [place] Type B(3) Ab Pending [place] Type B(4) Ab Pending [place] Type B(5) Ab Pending [place] Type B(6) Ab Pending Hep C Ab Diagnostic Pending Human Metapneumovir PCR Influenza A (Rapid) Influenza A (H1) PCR Influenza B (Rapid) Influenza B (RT-PCR) Parainfluenza 1 (PCR) Parainfluenza 2 (PCR) Parainfluenza 3 (PCR) RSV Type A (PCR) RSV Type B (PCR) Rhinovirus (PCR) Micro 09/22: Ucx, blood cx - pending Imaging CXR: without acute abnormality Assessment/plan 59 y/o male PMH HTN, HLD, and DM who presented to the ED c/o sudden diaphoresis and chills, as well as fever up to 103F. #Sepsis 2/2 unknown etiology -unclear etiology, whether 2/2 LLE cellulitis, r/o endocarditis, viral illness -on empiric ceftriaxone, vanco (Day 1) -f/u ucx, blood cx, resp panel PCR, sputum cx -IV tylenol PRN for fever/pain -f/u coxsackie testing, echo -ESR 13, CRP 14.7 elevated -lactic has normalized -ID consulted: Dr. Bolaños #HTN- controlled -hold metoprolol for now, low BP -hold losartan in setting of LORENA #LORENA-resolving -avoid IVF as pt with edema -c/t monitor #R/o DVT -f/u duplex LE #HLD -c/w statin #LE edema -hold lasix for now; pt uses at home for LE edema PRN #DM2 -c/w ISS, BGM ACHS -f/u a1c #F/E/N off IVF continue to follow lytes diabetic/na controlled diet #PPX DVT: hep TID #Dispo admitted to med-surg <[email or web address] - Last Filed: 09/22/19 17:19> - Note Progress Note: Seen and examined; agree with above documentation aside from as supplemented below by myself. No new issues documented. Independently verified all historical and PE findings alongside labs, imaging, and diagnostics. Discussed at length with the resident team and consulting services. In AM DCd abx to monitor clinically in case underlying viral illness. He had a fever in the PM thus abx restarted empirically. Obtaining imaging. Echo, viral pannel, and cultures pending. Seen by Dr. Bolaños. Appreciate expert care. 10 sys ROS done and negative aside from HPI VS labs imaging reviewed NAD, AAO, resting in bed RRR s1/2 NT ND +BS CN2-12 wnl, no fnd Lungs CTAB, w/ sym exp Trachea midline, no LN Normal mood, appropriate behavior Skin without rashes or breakdown Normal muscle tone, 5/5 strength in all 4 ext Diagnostics discussed above A/P: Patient presents with sepsis of unknown etiology; pending ID workup and continue to monitor. Checked coxsackie due to enlarged heart on CXR with elevated BNP though unlikely. Hemodynamics stable. As he did have fevers and sepsis with cessasion of abx he qualifies for further treatment for inpatient therapy. Problems include: -Sepsis of unknown etiology/FUO (FU viral swab, blood cultures, esr/crp, imaging ) -LORENA (on likely CKD given DM, HTN, obesity) -Hx HTN (Holding ARB) -Hx DM (Verify and continue home insulin, hold PO antihyperglycemics, SSI) -Morbid Obesity -Hx HLD (Continue with home statin) -Elevated BNP (FU echo, coxsackie) Full Code <[email or web address] akins - Last Filed: 09/23/19 08:04>
[2019-09-22] MEDS ORDERED: ACETAMINOPHEN 1000 MG/100 ML VIAL (NON FORMULARY) IVPB PRN (16:30)
[2019-09-22] MEDS ORDERED: PT OWN MED DRAWER 7, Y5N ONE (18:03)
[2019-09-22] MEDS: VANCOMYCIN 1,250 MG in DEXTROSE 5%-WATER - 250 ML IVPB SCH (18:05)
[2019-09-22] MEDS: ROSUVASTATIN CA 10 MG TABLET (FP) PO SCH (21:51)
[2019-09-23] MEDS ORDERED: PIPERACILLIN/TAZOB 3.375 GM 3.375 GM in DEXTROSE 5%-WATER - 50 ML IVPB SCH (02:00)
[2019-09-23] MEDS ORDERED: VANCOMYCIN 1 GM in D5W (PRE-DOCKED) 1,000 MG/250 ML IVPB SCH (05:00)
[2019-09-23] MEDS ORDERED: PT OWN MED DRAWER 7, Y5N ONE ×3 (05:22→17:01)
[2019-09-23] MEDS: VANCOMYCIN 1,250 MG in DEXTROSE 5%-WATER - 250 ML IVPB SCH ×2 (05:40→17:19)
[2019-09-23] MEDS: HEPARIN NA (PORCINE) 5,000 UNITS/ML 1ML VIAL SQ SCH ×3 (05:41→22:06)
[2019-09-23] MEDS: INSULIN SLIDING SCALE (NOVOLOG) 1 VIAL SQ SCH ×4 (07:29→22:06)
--- NOTE | 2019-09-23 08:04 | PN ---
Physical Exam: SUBJECTIVE: Patient seen and examined OBJECTIVE: Vital Signs Period Temp Pulse Resp BP Sys/Dubon Pulse Ox Last 24 Hr 97.3 F-102.5 F 93-107 18-19 103-135/47-93 97-98 GENERAL: The patient is awake, alert, and fully oriented, in no acute distress. HEAD: Normal with no signs of trauma. EYES: PERRL, extraocular movements intact, sclera anicteric, conjunctiva clear. No ptosis. ENT: Ears normal, nares patent, oropharynx clear without exudates, moist mucous membranes. NECK: Trachea midline, full range of motion, supple. LUNGS: Breath sounds equal, clear to auscultation bilaterally, no wheezes, no crackles, no accessory muscle use. HEART: Regular rate and rhythm, S1, S2 without murmur, rub or gallop. ABDOMEN: Soft, nontender, nondistended, normoactive bowel sounds, no guarding, no rebound, no hepatosplenomegaly, no masses. EXTREMITIES: 2+ pulses, warm, well-perfused, no edema. NEUROLOGICAL: Cranial nerves II through XII grossly intact. Normal speech, gait not observed. PSYCH: Normal mood, normal affect. SKIN: Warm, dry, normal turgor, no rashes or lesions noted Laboratory Results - last 24 hr 09/22/19 09/22/19 09/22/19 08:37 10:54 10:54 WBC 19.8 H RBC 5.58 Hgb 15.9 Hct 49.9 H MCV 89.3 MCH 28.4 MCHC 31.8 L RDW 16.3 H Plt Count 205 MPV 8.3 Absolute Neuts (auto) 17.8 H Neutrophils % 90.0 H Lymphocytes % 5.8 L D Monocytes % 3.7 L Eosinophils % 0.2 Basophils % 0.3 Nucleated RBC % 0 ESR Sodium 139 Potassium 4.1 Chloride 103 Carbon Dioxide 30 Anion Gap 6 L BUN 22.9 H Creatinine 1.3 Est GFR (CKD-EPI)AfAm 69.22 Est GFR (CKD-EPI)NonAf 59.72 POC Glucometer 162 Random Glucose 262 H Hemoglobin A1c % Lactic Acid Calcium 9.2 Phosphorus 4.0 Magnesium 2.2 Troponin I C-Reactive Protein B-Natriuretic Peptide TSH 1.03 Hep C Ab Diagnostic 09/22/19 09/22/19 09/22/19 10:54 10:54 11:38 WBC RBC Hgb Hct MCV MCH MCHC RDW Plt Count MPV Absolute Neuts (auto) Neutrophils % Lymphocytes % Monocytes % Eosinophils % Basophils % Nucleated RBC % ESR Sodium Potassium Chloride Carbon Dioxide Anion Gap BUN Creatinine Est GFR (CKD-EPI)AfAm Est GFR (CKD-EPI)NonAf POC Glucometer 294 Random Glucose Hemoglobin A1c % 7.9 H Lactic Acid 1.5 Calcium Phosphorus Magnesium Troponin I C-Reactive Protein B-Natriuretic Peptide TSH Hep C Ab Diagnostic 09/22/19 09/22/19 09/22/19 11:50 14:06 14:06 WBC RBC Hgb Hct MCV MCH MCHC RDW Plt Count MPV Absolute Neuts (auto) Neutrophils % Lymphocytes % Monocytes % Eosinophils % Basophils % Nucleated RBC % ESR Sodium Potassium Chloride Carbon Dioxide Anion Gap BUN Creatinine Est GFR (CKD-EPI)AfAm Est GFR (CKD-EPI)NonAf POC Glucometer Random Glucose Hemoglobin A1c % Lactic Acid 1.6 Calcium Phosphorus Magnesium Troponin I < 0.02 C-Reactive Protein 14.7 H B-Natriuretic Peptide 130.4 H TSH Hep C Ab Diagnostic 0.1 09/22/19 09/22/19 09/22/19 14:06 17:58 21:48 WBC RBC Hgb Hct MCV MCH MCHC RDW Plt Count MPV Absolute Neuts (auto) Neutrophils % Lymphocytes % Monocytes % Eosinophils % Basophils % Nucleated RBC % ESR 13 Sodium Potassium Chloride Carbon Dioxide Anion Gap BUN Creatinine Est GFR (CKD-EPI)AfAm Est GFR (CKD-EPI)NonAf POC Glucometer 159 174 Random Glucose Hemoglobin A1c % Lactic Acid Calcium Phosphorus Magnesium Troponin I C-Reactive Protein B-Natriuretic Peptide TSH Hep C Ab Diagnostic 09/23/19 07:28 WBC RBC Hgb Hct MCV MCH MCHC RDW Plt Count MPV Absolute Neuts (auto) Neutrophils % Lymphocytes % Monocytes % Eosinophils % Basophils % Nucleated RBC % ESR Sodium Potassium Chloride Carbon Dioxide Anion Gap BUN Creatinine Est GFR (CKD-EPI)AfAm Est GFR (CKD-EPI)NonAf POC Glucometer 146 Random Glucose Hemoglobin A1c % Lactic Acid Calcium Phosphorus Magnesium Troponin I C-Reactive Protein B-Natriuretic Peptide TSH Hep C Ab Diagnostic Active Medications Generic Name Dose Route Start Last Admin Trade Name Freq PRN Reason Stop Dose Admin Acetaminophen 1,000 mg 09/22/19 16:30 09/22/19 17:00 Ofirmev Injection - IVPB 1,000 mg Q6H PRN Administration FEVER Aspirin 81 mg 09/23/19 10:00 Ecotrin - PO DAILY DANIELLE Heparin Sodium (Porcine) 5,000 unit 09/22/19 06:45 09/23/19 05:41 Heparin - SQ 5,000 unit TID DANIELLE Administration Vancomycin HCl 1,250 mg/ 250 mls @ 166.667 mls/hr 09/22/19 17:00 09/23/19 05: 40 Dextrose IVPB 166.667 mls/hr Q12H DANIELLE Administration Protocol Ceftriaxone Sodium 2 gm/ 100 mls @ 100 mls/hr 09/22/19 12:45 09/22/19 14:43 Dextrose IVPB 100 mls/hr DAILY DANIELLE Administration Protocol Insulin Aspart 1 vial 09/22/19 07:00 09/23/19 07:29 Novolog Vial Sliding Scale - SQ Not Given ACHS DANIELLE Protocol Rosuvastatin Calcium 10 mg 09/22/19 22:00 09/22/19 21:51 Crestor - PO 10 mg HS DANIELLE Administration Echo pending Viral swab pending Micro pending; NGTD on cxs ASSESSMENT/PLAN: Patient presents with sepsis of unknown etiology; pending ID workup and continue to monitor. Checked coxsackie due to enlarged heart on CXR with elevated BNP though unlikely. Hemodynamics stable. As he did have fevers and sepsis with cessasion of abx he qualifies for further treatment for inpatient therapy. Today he remains improved; good glycemic control. Continue with abx per ID and FU workup. Problems include: -Sepsis of unknown etiology/FUO (FU viral swab, blood cultures, esr/crp, imaging. Continue empiric abx per ID.) -LORENA (on likely CKD given DM, HTN, obesity) -Hx HTN (Holding ARB) -Hx DM (Verify and continue home insulin, hold PO antihyperglycemics, SSI) -Morbid Obesity -Hx HLD (Continue with home statin) -Elevated BNP (FU echo, coxsackie) Full Code Visit type - Emergency Visit Emergency Visit: Yes ED Registration Date: 09/22/19 Care time: The patient presented to the Emergency Department on the above date and was hospitalized for further evaluation of their emergent condition. - New Patient This patient is new to me today: No - Critical Care Critical Care patient: No
[2019-09-23] MEDS ORDERED: DEXTROSE 5%-WATER 100 ML IVPB ONE (09:42)
[2019-09-23 09:43] LABS: BASO % 0.5 % (0-2.0); EOS % 0.8 % (0-4.5); HEMATOCRIT 49.5 % (35.4-49); HEMOGLOBIN 16.1 GM/dL (11.7-16.9); LYMPH % 12.9 % (8-40); MCH 28.7 pg (25.7-33.7); MCHC 32.5 g/dl (32.0-35.9); MEAN CELL VOLUME 88.2 fl (80-96); MEAN PLT VOLUME 8.3 fl (7.5-11.1); MONO % 6.8 % (3.8-10.2); PLATELET COUNT 188 K/MM3 (134-434); RBC 5.62 M/mm3 (4.00-5.60); RDW 16.2 % (11.9-15.9); WHITE BLOOD COUNT 8.7 K/mm3 (4.0-10.0)
[2019-09-23] MEDS: ASPIRIN COATED 81 MG TABLET.EC PO SCH (09:46)
[2019-09-23] MEDS: CEFTRIAXONE 2 GM in DEXTROSE 5%-WATER 100 ML IVPB SCH (09:46)
[2019-09-23 10:04] LABS: BLOOD UREA NITROGEN 11.9 mg/dL (7-18); CALCIUM 8.9 mg/dL (8.5-10.1); PHOSPHOROUS 2.6 mg/dL (2.5-4.9); POTASSIUM 4.2 mmol/L (3.5-5.1)
--- NOTE | 2019-09-23 12:31 | PN ---
Progress Note (short form) - Note Progress Note: feels well no complaints Vital Signs Period Temp Pulse Resp BP Sys/Dubon Pulse Ox Last 24 Hr 98.1 F-102.5 F 93-107 103-135/47-93 98 cor-rrr lungs clear abd soft,nt exr- no longer warm, still some erythema LLE CBC, BMP 09/23/19 09:00 09/23/19 09:00 Microbiology 09/22/19 04:12 Urine - Urine Clean Catch Urine Culture - Final NO GROWTH OBTAINED 09/22/19 03:45 Blood - Peripheral Venous Blood Culture - Preliminary NO GROWTH OBTAINED AFTER 24 HOURS, INCUBATION TO CONTINUE FOR 4 DAYS. 09/22/19 03:45 Blood - Peripheral Venous Blood Culture - Preliminary NO GROWTH OBTAINED AFTER 24 HOURS, INCUBATION TO CONTINUE FOR 4 DAYS. a/p fevers- suspect cellulitis of the LLE repeat cxray pa and lateral today f/u cultures if blood cultures are negative can switch to po augmentin for 7 days in am would continue iv antibiotics today d/w and patient d/w hospitalist
[2019-09-23] MEDS: ROSUVASTATIN CA 10 MG TABLET (FP) PO SCH (22:06)
[2019-09-24] MEDS ORDERED: DEXTROSE 5%-WATER 100 ML IVPB ONE (05:30)
[2019-09-24] MEDS ORDERED: CEFTRIAXONE 2 GM in DEXTROSE 5%-WATER 100 ML IVPB SCH (06:00)
[2019-09-24 06:21] VITALS: BP 134/78; TEMP -97.7
[2019-09-24] MEDS: HEPARIN NA (PORCINE) 5,000 UNITS/ML 1ML VIAL SQ SCH (07:08)
[2019-09-24] MEDS: INSULIN SLIDING SCALE (NOVOLOG) 1 VIAL SQ SCH (07:08)
--- NOTE | 2019-09-24 08:52 | DS ---
Physical Exam: SUBJECTIVE: Patient seen and examined OBJECTIVE: Vital Signs Period Temp Pulse Resp BP Sys/Dubon Pulse Ox Last 24 Hr -97.7 F-98.6 F 89-94 18-20 106-138/72-78 98-100 PHYSICAL EXAM GENERAL: The patient is awake, alert, and fully oriented, in no acute distress. HEAD: Normal with no signs of trauma. EYES: PERRL, extraocular movements intact, sclera anicteric, conjunctiva clear. ENT: Ears normal, nares patent, oropharynx clear without exudates, moist mucous membranes. NECK: Trachea midline, full range of motion, supple. LUNGS: Breath sounds equal, clear to auscultation bilaterally, no wheezes, no crackles, no accessory muscle use. HEART: Regular rate and rhythm, S1, S2 without murmur, rub or gallop. ABDOMEN: Soft, nontender, nondistended, normoactive bowel sounds, no guarding, no rebound, no hepatosplenomegaly, no masses. EXTREMITIES: 2+ pulses, warm, well-perfused, no edema. NEUROLOGICAL: Cranial nerves II through XII grossly intact. Normal speech, gait not observed. PSYCH: Normal mood, normal affect. SKIN: Warm, dry, normal turgor, no rashes or lesions noted. LABS Laboratory Results - last 24 hr 09/23/19 09/23/19 09/23/19 09:00 09:00 11:10 WBC 8.7 RBC 5.62 H Hgb 16.1 Hct 49.5 H MCV 88.2 MCH 28.7 MCHC 32.5 RDW 16.2 H Plt Count 188 MPV 8.3 Absolute Neuts (auto) 6.9 Neutrophils % 79.0 Lymphocytes % 12.9 D Monocytes % 6.8 D Eosinophils % 0.8 D Basophils % 0.5 Nucleated RBC % 0 Sodium 136 Potassium 4.2 Chloride 101 Carbon Dioxide 30 Anion Gap 5 L BUN 11.9 Creatinine 1.0 Est GFR (CKD-EPI)AfAm 95.06 Est GFR (CKD-EPI)NonAf 82.02 POC Glucometer Random Glucose 164 H Calcium 8.9 Phosphorus 2.6 Magnesium 2.0 HIV 1&2 Ag/Ab, 4th Gen Non reactive 09/23/19 09/23/19 09/23/19 11:47 17:11 21:52 WBC RBC Hgb Hct MCV MCH MCHC RDW Plt Count MPV Absolute Neuts (auto) Neutrophils % Lymphocytes % Monocytes % Eosinophils % Basophils % Nucleated RBC % Sodium Potassium Chloride Carbon Dioxide Anion Gap BUN Creatinine Est GFR (CKD-EPI)AfAm Est GFR (CKD-EPI)NonAf POC Glucometer 187 191 168 Random Glucose Calcium Phosphorus Magnesium HIV 1&2 Ag/Ab, 4th Gen HOSPITAL COURSE: Date of Admission:09/22/19 Date of Discharge: 09/24/19 Minutes to complete discharge: 35 Discharge Summary Problems reviewed: Yes Reason For Visit: SEPSIS Current Active Problems Sepsis (Acute) Condition: Good - Instructions Diet, Activity, Other Instructions: You were seen for fever; though no cultures were positive we postulate that this may be secondary to cellulitis. You were seen by ID Please finish your Augmentin, not skipping any doses Followup with PCP 3-5 days 1 month with podiatry for chronic DM foot eval OP sleep study and PFTs Weight Loss recommended Continue home diet Continue home activity Referrals: Terrance Hamlin MD [Staff Physician] - 1 Month (OP PFTs) Gera Marin DPM [Staff Physician] - 1 Month (DM Foot Eval) Brianna Saavedra MD [Primary Care Provider] - 1 Week Disposition: HOME - Home Medications Comprehensive Discharge Medication List: Ambulatory Orders Glimepiride [Amaryl] 4 mg PO BID 11/17/11 Losartan Potassium [Cozaar] 25 mg PO DAILY 11/17/11 Furosemide [Lasix -] 40 mg PO PRN PRN 11/18/11 Fenofibrate,Micronized [Fenofibrate] 145 mg PO HS 03/25/17 Insulin (Levemir) [Levemir Flexpen -] 40 units SQ DAILY 03/25/17 Insulin Glargine,Hum.rec.anlog [Lantus (10mL VIAL) -] 20 units SQ PRN PRN Metoprolol Succinate [Toprol XL -] 25 mg PO DAILY 03/25/17 Potassium Chloride [Klor-Con 10] 10 meq PO BID 03/25/17 Rosuvastatin [Crestor -] 10 mg PO HS 03/25/17 Aspirin [Aspirin EC] 81 mg PO DAILY 09/22/19 Hydrocodone/Acetaminophen [Hydrocodone-Acetamin 5-325 mg] 1 each PO PRN PRN Naproxen 500 mg PO PRN 09/22/19 Amox-Tr/K Cl [Augmentin 875-125mg Tablet -] 1 tab PO BID@0800,1730 7 Days #14 tablet 09/24/19
[2019-09-24 10:18] VITALS: PULSE 93
[2019-09-24] MEDS: ASPIRIN COATED 81 MG TABLET.EC PO SCH ×2 (10:21→10:25)
[2019-09-24] MEDS: VANCOMYCIN 1,250 MG in DEXTROSE 5%-WATER - 250 ML IVPB SCH (10:24)
[2019-09-24] MEDS ORDERED: AMOX TR/POT CLAV 875MG/125MG TABLETS (FP) PO SCH (17:30)
--- NOTE | 2019-09-25 11:57 | EKG ---
Test Reason : Blood Pressure : / mmHG Vent. Rate : 131 BPM Atrial Rate : 131 BPM P-R Int : 160 ms QRS Dur : 076 ms QT Int : 286 ms P-R-T Axes : 047 -32 032 degrees QTc Int : 422 ms SINUS TACHYCARDIA WITH OCCASIONAL PREMATURE VENTRICULAR COMPLEXES LEFT AXIS DEVIATION ABNORMAL ECG WHEN COMPARED WITH ECG OF 18-NOV-2011 08:26, PREMATURE VENTRICULAR COMPLEXES ARE NOW PRESENT VENT. RATE HAS INCREASED Confirmed by DAVI PATEL, REMY ([id number]) on 09/25/2019 11:57:04 AM Referred By: Confirmed By:REMY TOMLINSON MD
== END 2019-09-24 11:53 | disposition home or self-care (01) | DRG 872 ==
LOC: JER 03:16 → JERBED 05:12 → J5S 09:31
PROVIDERS: ADMIT Internal Medicine; ATTEND Internal Medicine
DX: A41.9 Sepsis, unspecified organism (principal); N17.9 Acute kidney failure, unspecified; Z68.41 Body mass index [BMI] 40.0-44.9, adult; L03.116 Cellulitis of left lower limb; E87.2 Acidosis; E66.01 Morbid (severe) obesity due to excess calories; I10 Essential (primary) hypertension; E78.5 Hyperlipidemia, unspecified; Z79.4 Long term (current) use of insulin; D72.829 Elevated white blood cell count, unspecified; E11.65 Type 2 diabetes mellitus with hyperglycemia; R00.0 Tachycardia, unspecified
CPT/HCPCS: 36415; 71045-TC-FY; 71046-TC-FY; 80048; 80053; 81003; 82803; 82962; 83036; 83605; 83735; 83880; 84100; 84443; 84484; 85025; 85610; 85651; 85730; 86140; 86658; 86803; 87040; 87086; 87389; 87633; 87804; 87899; 93005; 93010; 93971-TC; 97116-GP; 97161-GP; 99284-25; J0131; J1644; J7030